=== PATIENT | female | born 1960 | race Two or more races ===

== ENCOUNTER 2018-09-05 10:46 | Outpatient (CLI) | payer OTHER ==
[~2018-09-05 10:46] MED LIST: MOTRIN800 MG PO; PREDNISONE20 MG PO; ZANTAC300 MG PO
== END 2018-09-05 10:51 | disposition home or self-care (01) ==
LOC: MAMO-SONO 10:46
DX: N60.29 Fibroadenosis of unspecified breast (principal); N64.4 Mastodynia; N60.11 Diffuse cystic mastopathy of right breast; N60.12 Diffuse cystic mastopathy of left breast; Z12.31 Encounter for screening mammogram for malignant neoplasm of breast

== ENCOUNTER 2021-09-02 08:08 | Outpatient (CLI) | payer OTHER | END 2021-09-02 08:09 | disposition home or self-care (01) | LOC: MRI 08:08 | PROVIDERS: ATTEND Orthopaedic Surgery | DX: M25.561 Pain in right knee (principal); M25.562 Pain in left knee; S83.200A Bucket-handle tear of unspecified meniscus, current injury, right knee, initial encounter | CPT/HCPCS: 73718 ==